=== PATIENT | female | born 1955 | race Two or more races ===

== ENCOUNTER 2019-09-18 17:10 | Emergency (ER) | payer MEDICAID ==
[~2019-09-18] VITALS: Ht 165.1 cm; Wt 90.0 kg
[2019-09-18 22:11] VITALS: BP 135/81
== END 2019-09-18 22:12 | disposition home or self-care (01) ==
LOC: ER 17:25
DX: B34.9 Viral infection, unspecified (principal); H66.91 Otitis media, unspecified, right ear
CPT/HCPCS: 99283